=== PATIENT | male | born 1990 | race Two or more races ===

== ENCOUNTER 2016-09-12 18:00 | Emergency (ER) | payer OTHER ==
[~2016-09-12] VITALS: Ht 190.5 cm; Wt 99.5 kg
[~2016-09-12 18:00] MED LIST: HYDR473S47 PO; ONDA4TAB35 PO; OSLT75C PO
[2016-09-12 18:10] VITALS: Ht 190.5 cm; Wt 99.5 kg
[2016-09-12] MEDS ORDERED: SOD CHLORIDE 0.9% 1,000 ML IV STA (18:32)
[2016-09-12 19:41] LABS: ADD SCAN DIFF NO
[2016-09-12 19:45] LABS: ABNORMAL IP MESSAGE 1; HEMATOCRIT 47.2 % (42.0-52.0); HEMOGLOBIN 14.5 g/dl (14.0-18.0); MEAN CORPUSCULAR HGB CONC 30.7 g/dl (32.0-37.0); MEAN CORPUSCULAR VOLUME 71.6 fl (82.0-101.0); PLATELET COUNT 180 10^3/UL (140-415); RED BLOOD COUNT 6.59 10^6/ul (4.70-6.10); RED CELL DISTRIBUTION WIDTH 17.5 % (11.5-14.5); WHITE BLOOD COUNT 7.3 10^3/ul (4.8-10.8)
[2016-09-12 19:58] LABS: ALBUMIN 3.9 g/dl (3.3-4.9); POTASSIUM 3.9 mmol/L (3.5-5.1)
[2016-09-12 19:59] LABS: ADD UMIC YES; URINE BILIRUBIN (Dip) 1+ (NEGATIVE); URINE BLOOD (Dip) NEGATIVE (NEGATIVE); URINE COLOR YELLOW (YELLOW); URINE GLUCOSE (Dip) NEGATIVE (NEGATIVE); URINE KETONES (Dip) TRACE (NEGATIVE); URINE LEUKOCYTE ESTERASE (Dip) NEGATIVE (NEGATIVE); URINE NITRITE (Dip) NEGATIVE (NEGATIVE); URINE TOTAL PROTEIN (Dip) TRACE (NEGATIVE); URINE UROBILINOGEN (Dip) 1.0 E.U./dL (0.1-1.0)
[2016-09-12 20:00] LABS: BILIRUBIN,INDIRECT 0.2 mg/dl (0-1.1); BILIRUBIN,TOTAL 0.2 mg/dl (0.2-1.3); CREATININE 0.88 mg/dl (0.61-1.24)
[2016-09-12 20:01] LABS: ALBUMIN/GLOBULIN RATIO 1.25; CALCIUM 9.1 mg/dl (8.4-10.2)
[2016-09-12 20:03] LABS: BARBITURATES Negative (NEGATIVE); BENZODIAZEPINES Negative (NEGATIVE)
[2016-09-12 20:04] LABS: CANNABINOIDS Positive (NEGATIVE)
[2016-09-12 20:06] LABS: COCAINE Negative (NEGATIVE); OPIATES Negative (NEGATIVE)
[2016-09-12 20:15] LABS: ICTOTEST NEGATIVE (NEGATIVE); SQUAMOUS EPITHELIAL CELL,UR RARE; URINE RBCS NONE SEEN /HPF (0)
[2016-09-12 21:24] LABS: BASOPHIL # 0.1 10^3/ul (0.0-0.1); EOSINOPHILS # 0.1 10^3/ul (0.0-0.5); MONOCYTE # 0.7 10^3/ul (0.3-0.9); NEUTROPHIL # 4.3 10^3/ul (1.6-7.5)
[2016-09-12 21:25] LABS: PLATELET ESTIMATE PLT APPEAR ADEQUATE
[2016-09-12] MEDS ORDERED: ONDANSETRON 4 MG INJ IV STA (21:36)
[2016-09-12] MEDS ORDERED: SOD CHLORIDE 0.9% 1,000 ML IV ONE (22:00)
[2016-09-12 22:59] VITALS: BP 113/72; PULSE 71; RESP 16
--- NOTE | 2016-09-13 01:32 | ERD ---
ER Documentation Chief Complaint Date/Time DATE: 09/13/16 TIME: 01:29 Chief Complaint arm pain after drug injection 2 days ago HPI 25-year-old male with a past medical history of drug abuse presents the ED complaining of bilateral upper and lower extremity numbness and tingling after injecting himself with 40-80 cc of crystal meth 2 days ago. Reports that he especially feels this in his right and left big toe. States that he feels nauseous but denies any vomiting. Denies any chest pain, shortness of breath, fever, abdominal pain, diarrhea, rashes, dyspnea on exertion, orthopnea. Reports that he smokes 1-1/2 pack of cigarettes per day and has been smoking for 2 years. States that he smokes weed and injects crystal meth. Denies any alcohol use. ROS All systems reviewed and are negative except as per history of present illness. Medications Home Meds Active Scripts Hydrocodone/Homatropine Mbr* (Hycodan* Liq) 5 Ml Syrup, 5 ML PO Q4H Y for COUGH , #4 OZ Prov:NEVILLE HILL MD 08/20/15 Oseltamivir Phosphate* (Tamiflu*) 75 Mg Capsule, 75 MG PO BID for 5 Days, CAP Prov:NEVILLE HILL MD 08/20/15 Ondansetron Hcl* (Zofran* ODT) 4 mg -ODT Tab.disper, 4 MG PO Q6 Y for NAUSEA AND /OR VOMITING, #30 TAB Prov:NEVILLE HILL MD 08/20/15 Allergies Allergies: Coded Allergies: No Known Allergy (Unverified , 07/08/13) PMhx/Soc Medical and Surgical Hx: pt denies Medical Hx, pt denies Surgical Hx Hx Alcohol Use: Yes Hx Substance Use: Yes Hx Tobacco Use: Yes Smoking Status: Current every day smoker Physical Exam Vitals Vital Signs Date Time Temp Pulse Resp B/P Pulse Ox O2 Delivery O2 Flow Rate FiO2 09/12/16 22:59 71 16 113/72 99 Room Air 09/12/16 18:10 97.5 82 18 122/88 98 Physical Exam Const: [id number], well-nourished. In no acute distress. Head: Atraumatic, normocephalic Eyes: Normal Conjunctiva without injection. No purulent discharge. PERRLA. EOMI ENT: Normal external ear. Ear canal without erythema. Tympanic membrane pearly lubin without effusion or bulging. Nasal canal clear with normal turbinates. Moist oropharynx without tonsillar exudates. Non-erythematous pharynx. Uvula midline. No drooling. No trismus. Neck: No cervical midline tenderness. Full range of motion. No meningismus. No cervical lymphadenopathy. No JVD. Resp: Clear to auscultation bilaterally. No wheezing, rhonchi, rales, or crackles. No accessory muscle use. No retractions. Cardio: Regular rate and rhythm. No murmurs, rubs or gallops. Abd: Soft, non tender, non distended. Normal bowel sounds. No palpable masses. No rebound tenderness. No guarding. Negative McBurney's Point. Negative Williamson's Sign. Skin: Normal skin turgor. No petechiae or rashes Back: No midline tenderness. No CVA tenderness. Ext: No cyanosis, or edema. Distal pulses intact bilaterally. Neur: Awake and alert. Normal gait. Normal coordination. Cranial Nerves II- VII intact. Normal finger to nose. Muscle strength 5/5. Sensation intact. Psych: Normal Mood and Affect Result Diagram: 09/12/16185309/12/161853 Results 24 hrs Laboratory Tests Test 09/12/16 18:47 09/12/16 18:54 Urine Color YELLOW Urine Clarity CLEAR Urine pH 5.5 Urine Specific [place] >=1.030 Urine Ketones TRACE Urine Nitrite NEGATIVE Urine Bilirubin 1+ Urine Ictotest NEGATIVE Urine Urobilinogen 1.0 E.U./dL Urine Leukocyte Esterase NEGATIVE Urine Microscopic RBC NONE SEEN/HPF Urine Microscopic WBC 0-2/HPF Urine Squamous Epithelial Cells RARE Urine Hemoglobin NEGATIVE Urine Glucose NEGATIVE% Urine Total Protein TRACE Urine Opiates Screen Negative Urine Barbiturates Negative Urine Amphetamines Screen POSITIVE Urine Benzodiazepines Screen Negative Urine Cocaine Screen Negative Urine Cannabinoids Positive White Blood Count 7.310^3/ul Red Blood Count 6.5910^6/ul Hemoglobin 14.5g/dl Hematocrit 47.2% Mean Corpuscular Volume 71.6fl Mean Corpuscular Hemoglobin 22.0pg Mean Corpuscular Hemoglobin Concent 30.7g/dl Red Cell Distribution Width 17.5% Platelet Count 24995^3/UL Mean Platelet Volume 12.0fl Neutrophils % 59.0% Lymphocytes % 28.0% Reactive Lymphocytes % 1.0% Monocytes % 10.0% Eosinophils % 1.0% Basophils % 1.0% Neutrophils # 4.310^3/ul Lymphocytes # 2.010^3/ul Monocytes # 0.710^3/ul Eosinophils # 0.110^3/ul Basophils # 0.110^3/ul Platelet Estimate PLT APPEAR ADEQUATE Sodium Level 141mmol/L Potassium Level 3.9mmol/L Chloride Level 104mmol/L Carbon Dioxide Level 26mmol/L Anion Gap 15 Blood Urea Nitrogen 18mg/dl Creatinine 0.88mg/dl Glucose Level 97mg/dl Calcium Level 9.1mg/dl Total Bilirubin 0.2mg/dl Direct Bilirubin 0.00mg/dl Indirect Bilirubin 0.2mg/dl Aspartate Amino Transf (AST/SGOT) 20IU/L Alanine Aminotransferase (ALT/SGPT) 16IU/L Alkaline Phosphatase 70IU/L Total Protein 7.0g/dl Albumin 3.9g/dl Globulin 3.10g/dl Albumin/Globulin Ratio 1.25 Lipase 154U/L Current Medications Medications (Trade) Dose Ordered Sig/Natalia Route PRN Reason Start Time Stop Time Status Last Admin Dose Admin Sodium Chloride 1,000 ml @ 1,000 mls/hr Q1H STAT IV 09/12/16 18:32 09/12/16 19:31 DC 09/12/16 18:53 Sodium Chloride (NS) 1,000 ml @ 1,000 mls/hr Q1H ONCE IV 09/12/16 22:00 09/12/16 22:59 DC 09/12/16 21:53 Ondansetron HCl (Zofran Inj) 4 mg ONCE STAT IV 09/12/16 21:36 09/12/16 21:38 DC 09/12/16 21:52 Procedures/MDM This is a 25-year-old male with a past medical history of crystal meth abuse presents to the ED complaining of bilateral upper lower extremity numbness and tingling after using crystal meth 2 days ago. Patient is afebrile and nontoxic- appearing. Patient has normal vital signs. This case discussed with my supervising physician, Dr. Espinoza. A CBC, CMP, lipase, EKG, 2 L normal saline, 4 mg IV Zofran was ordered to further treat and evaluate patient. CBC: No leukocytosis or anemia CMP: No e/o acidosis, alkalosis, DKA, liver or renal disease UA: No leukocyte esterase, nitrite, hematuria. Urine drug screen positive for amphetamine and cannabinoids. EKG reviewed and interpreted by Dr. Espinoza Rate/Rhythm: [73 bpm, Normal Sinus Rhythm] No ectopy, no ST elevations, normal axis. QRS, ST, T-waves: [No changes consistent w/ acute ischemia] Impression: [No evidence of ischemia or arrhythmia] Low suspicion for pericarditis, endocarditis, acute myocardial infarction, pneumothorax, pneumonia, cardiac tamponade, pulmonary embolism, AAA, aortic dissection, Boerhaave's syndrome, cardiac dysrhythmias,meningitis, intracranial bleed, seizure, stroke, TIA or other emergent conditions. Smoking Cessation Therapy: Pt. was lectured for greater than 3 minutes on the health risks of continued smoking and the benefits of cessation. Follow up with primary care physician in 1-2 days for a referral to rehabilitation for drug abuse. Instructed patient to return to the ED sooner for any worsening symptoms. Patient's questions were answered. Patient understood and agreed with discharge plan. Patient discharged stable. Departure Diagnosis: Primary Impression: Drug use Condition: Stable Patient Instructions: Understanding Methamphetamine Abuse and Addiction, Drug Abuse Referrals: COMMUNITY CLINICS YOU HAVE RECEIVED A MEDICAL SCREENING EXAM AND THE RESULTS INDICATE THAT YOU DO NOT HAVE A CONDITION THAT REQUIRES URGENT TREATMENT IN THE EMERGENCY DEPARTMENT. FURTHER EVALUATION AND TREATMENT OF YOUR CONDITION CAN WAIT UNTIL YOU ARE SEEN IN YOUR DOCTORS OFFICE WITHIN THE NEXT 1-2 DAYS. IT IS YOUR RESPONSIBILITY TO MAKE AN APPOINTMENT FOR FOLOW-UP CARE. IF YOU HAVE A PRIMARY DOCTOR --you should call your primary doctor and schedule an appointment IF YOU DO NOT HAVE A PRIMARY DOCTOR YOU CAN CALL OUR PHYSICIAN REFERRAL HOTLINE AT IF YOU CAN NOT AFFORD TO SEE A PHYSICIAN YOU CAN CHOSE FROM THE FOLLOWING [facility] CLINICS [facility] [address] [facility] [address] [facility] [address] [facility] [address] [facility] [facility] [address] [facility]. [facility] [address] [facility]. [facility] YOU HAVE RECEIVED A MEDICAL SCREENING EXAM AND THE RESULTS INDICATE THAT YOU DO NOT HAVE A CONDITION THAT REQUIRES URGENT TREATMENT IN THE EMERGENCY DEPARTMENT. FURTHER EVALUATION AND TREATMENT OF YOUR CONDITION CAN WAIT UNTIL YOU ARE SEEN IN YOUR DOCTORS OFFICE WITHIN THE NEXT 1-2 DAYS. IT IS YOUR RESPONSIBILITY TO MAKE AN APPOINTMENT FOR FOLOW-UP CARE. IF YOU HAVE A PRIMARY DOCTOR --you should call your primary doctor and schedule and appointment IF YOU DO NOT HAVE A PRIMARY DOCTOR YOU CAN CALL OUR PHYSICIAN REFERRAL HOTLINE AT . IF YOU CAN NOT AFFORD TO SEE A PHYSICIAN YOU CAN CHOSE FROM THE FOLLOWING [facility] INSTITUTIONS: [facility] [address] [place] [address] [facility] [address] [place], [place] [id number] [place] [address] [address] [place] [address] [facility]ENT [facility]SPECIALT[facility] Additional Instructions: FOLLOW UP WITH YOUR PRIMARY CARE PHYSICIAN TOMORROW.Return to this facility if you are not improving as expected. BYRON PECK PA-C Sep 13, 2016 01:32
== END 2016-09-12 23:00 | disposition home or self-care (01) ==
LOC: FTE 18:00
DX: F15.10 Other stimulant abuse, uncomplicated (principal); F17.210 Nicotine dependence, cigarettes, uncomplicated
CPT/HCPCS: 36415; 80053; 80307; 81001; 81003; 83690; 85025; 93005; 96361; 96374; J2405; J7030; Z7502

== ENCOUNTER 2018-09-23 17:33 | Emergency (ER) | payer OTHER ==
[~2018-09-23] VITALS: Ht 188 cm; Wt 90.0 kg
[~2018-09-23 17:33] MED LIST changes: +OSEL75CA23 PO; -OSLT75C PO
[2018-09-23 17:41] VITALS: BP 135/77; PULSE 74; RESP 19; Ht 188 cm; Wt 90.0 kg
--- NOTE | 2018-09-23 17:55 | ERD ---
ER Documentation Chief Complaint Chief Complaint " IM HEARING VOICES" "I HAVE NO PLANS OF HURTIN MYSELF" HPI 27-year-old male history of bipolar not on his Effexor for approximately 1 month presents for auditory hallucinations. It appears the patient was at [facility] earlier today and left because he did not want to be admitted. The patient was not suicidal. EMS picked him up in the field and brought him here. The patient states that he is hearing voices and would like to be admitted to psychiatric facility. He denies any suicidal or homicidal ideati ons. He states that the voices are somewhat mean to him but not describing any suicidal thoughts or events. ROS All systems reviewed and are negative except as per history of present illness. Medications Home Meds Active Scripts Hydrocodone/Homatropine Mbr* (Hycodan* Liq) 5 Ml Syrup, 5 ML PO Q4H PRN for COUGH, #4 OZ Prov:NEVILLE HILL MD 08/20/15 Oseltamivir Phosphate* (Tamiflu*) 75 Mg Capsule, 75 MG PO BID for 5 Days, CAP Prov:NEVILLE HILL MD 08/20/15 Ondansetron Hcl* (Zofran* ODT) 4 mg -ODT Tab.disper, 4 MG PO Q6 PRN for NAUSEA AND/OR VOMITING, #30 TAB Prov:NEVILLE HILL MD 08/20/15 Allergies Allergies: Coded Allergies: No Known Allergy (Unverified , 07/08/13) PMhx/Soc Hx Alcohol Use: Yes Hx Substance Use: Yes Hx Tobacco Use: Yes FmHx Family History: No diabetes Physical Exam Vitals Vital Signs Date Temp Pulse Resp B/P (MAP) Pulse Ox O2 O2 Flow FiO2 Time Delivery Rate 09/23/18 98.0 74 19 135/77 99 17:41 (96) Physical Exam General: Well developed, well nourished, no acute distress Head: Normocephalic, atraumatic. Eyes: Pupils equally reactive, EOM intact ENT: Moist mucous membranes Neck: Supple, no lymphadenopathy Respiratory: Lungs clear bilaterally, no distress Cardiovascular: RRR, no murmurs, rubs, or gallops Abdominal: Soft, non-tender, non-distended, no peritoneal signs : Deferred MSK: No edema, no unilateral swelling, 5/5 strength Neurologic: Alert and oriented, moving all extremities, normal speech, no focal weakness, no cerebellar signs Skin: No rash Psych: Auditory hallucinations, paranoia, denies suicidal ideation, homicidal ideation. Moderate insight. Procedures/MDM MEDICAL DECISION MAKING: The patient's presentation is consistent with underlying psychiatric illness and likely exacerbation of this illness and/or psychosis. However, the patient denies any suicidal homicidal ideation. The patient is requesting voluntary psychiatric placement. I have a much lower clinical concern for delirium or acute organic pathology such as toxicologic, metabolic, ischemic, intracranial hemorrhage, infectious process. However, we must rule this out prior to relying a diagnosis of underlying psychiatric illness. The patient's workup will include medical screening examination and appropriate laboratory testing. If the patient's medical examination does not reveal acute organic pathology the patient will be medically cleared for psychiatric evaluation. ER COURSE: * The nurse went to draw the patient's of blood. The patient became very anxious about Blood draw, stood up and ran out of the emergency room. It should be noted that the patient did not appear to be a danger to himself or others. He was requesting voluntary hospitalization patient denied any suicidal or homicidal ideation. For this reason the patient did not meet criteria for 5150 hold. CONSULTATION: Psychiatric consultation: Telemetry medicine psychiatry has been consulted on this case to evaluate the patient for possible acute psychiatric illness that would require inpatient hospitalization. DISPOSITION PLAN: Patient eloped as noted above. Departure Diagnosis: Primary Impression: Bipolar disorder Active/Remission status: remission status unspecified Qualified Codes: F31.9 - Bipolar disorder, unspecified Additional Impressions: Auditory hallucinations Encounter for medical screening examination Condition: NEVILLE Moreira MD Sep 23, 2018 17:55
== END 2018-09-23 17:59 | disposition left against medical advice (07) ==
LOC: E/R 17:33
DX: F31.9 Bipolar disorder, unspecified (principal); Z87.891 Personal history of nicotine dependence
CPT/HCPCS: 99283